=== PATIENT | male | born 1945 | race Caucasian/White ===

== ENCOUNTER 2017-11-06 11:30 | Day surgery (SDC) | payer MEDICARE, SELFPAY ==
[2017-11-06] VITALS (7 sets, daily range): BP systolic 94–133; BP diastolic 43–79; PULSE 60–73; RESP 18; TEMP 36.2–36.6; O2SAT 92–96; BMI 34.2
--- NOTE | 2017-11-06 14:36 | OP.PCM_ITS ---
Report of Operation Date of Procedure: 11/06/17 Pre-Operative Diagnosis: history of colon polyps Post-Operative Diagnosis: same, no polyps seen, diverticulosis and hemorrhoids Surgery/Procedure Performed:: colonoscopy Description of Surgical Findings:: normal colon, no masses or polyps seen Type of Anesthesia:: MAC Anesthesiologist: Gwyn Crespo Specimen's removed: none Estimated Blood Loss (mL): none Fluids Replaced: see anesthesia note Description of Procedure: Indications: history of colon polyps, last colonoscopy 5 years ago After informed consent was given, the patient was brought to the endoscopy suite. Appropriate time out protocol was followed. He was then placed in the supine position. Appropriate cardiac, blood pressure, and pulse oximetry monitoring was placed. After stable vital signs were noted, the patient was given intravenous conscious sedation. The patient was then placed in the left lateral decubitis position. The colonoscope was lubricated and carefully inserted into the patient?s anus. It was then advanced into the rectum, then into the sigmoid colon, then into the left descending colon, past the splenic flexure, into the transverse colon, past the hepatic flexure, then down into the right descending colon and into the cecum. The cecum was identified by: transillumination, confluence of the tenae coli, identification of the ileocecal valve and appendiceal orifice, and external pressure with indentation. At this point, the colonoscope was slowly retracted back and the entire colonic mucosa was examined. Diverticulosis was noted in the sigmoid colon. There was no evidence of extrinsic compression and no inflammatory changes were noted. The colon cleansing preparation was adequate. No intraluminal obstructing lesions, no strictures, and no ulcers were noted. Retroflex view in the rectum revealed no lesions in the rectal vault except for minimal hemorrhoidal disease. The colonoscope was removed intact. Patient tolerated the procedure well. RECOMMENDATIONS: surveillance colonoscopy in five years - Complications none noted - Admit VTE Documentation VTE Present on Admission: Yes VTE Mechan Device Prophylaxis: SCD's
== END 2017-11-06 14:13 | disposition home or self-care (01) ==
LOC: EN 11:34 → AC 11:39
PROVIDERS: Family Provider Internal Medicine; PCP Internal Medicine; Visit Provider Surgery
PROC: 0DJD8ZZ Inspection of Lower Intestinal Tract, Via Natural or Artificial Opening Endoscopic (ICD-10-PCS; CPT 45378; principal; 2017-11-06 12:55)
DX: K57.30 Diverticulosis of large intestine without perforation or abscess without bleeding (principal); K64.9 Unspecified hemorrhoids; Z86.010 Personal history of colon polyps; I48.0 Paroxysmal atrial fibrillation; I42.8 Other cardiomyopathies; I10 Essential (primary) hypertension; G47.33 Obstructive sleep apnea (adult) (pediatric); G20 Parkinson's disease; N40.0 Benign prostatic hyperplasia without lower urinary tract symptoms; I87.2 Venous insufficiency (chronic) (peripheral); Z86.39 Personal history of other endocrine, nutritional and metabolic disease; Z87.448 Personal history of other diseases of urinary system; Z79.82 Long term (current) use of aspirin; Z79.899 Other long term (current) drug therapy
CPT/HCPCS: 45378; J7120